=== PATIENT | female | born 1975 | race Asian ===

== ENCOUNTER 2020-11-20 14:00 | Outpatient (CLI) | payer OTHER | END 2020-11-20 23:59 | disposition home or self-care (01) | LOC: D.MAMMO 14:00 | PROVIDERS: ATTEND Family Medicine | DX: Z80.3 Family history of malignant neoplasm of breast (principal) ==

== ENCOUNTER 2021-01-06 08:00 | Outpatient (CLI) | payer OTHER ==
[2021-01-06] MEDS ORDERED: LISINOPRIL10 MG PO (10:45)
[2021-01-06] MEDS ORDERED: NORVASC10 MG PO (10:45)
[2021-01-06] MEDS ORDERED: PROVERA10 MG PO (10:45)
[2021-01-06] MEDS ORDERED: LIPITOR40 MG PO (10:45)
[2021-01-06 11:23] LABS: BASOPHILS 0.3 % (0-2); EOSINOPHILS 2.4 % (0-7); HEMATOCRIT 41.6 % (36.0-48.0); HEMOGLOBIN 13.9 g/dL (12-16); IMMATURE GRANULOCYTES 0.1 % (0-5); LYMPHOCYTE ABS# 2.46 10x3/uL (1.18-3.74); LYMPHOCYTES 32.3 % (15-50); MCH 30.2 pg (26.0-34.0); MCHC 33.4 g/dL (31.0-37.0); MCV 90.2 fL (80.0-100.0); MONOCYTES 6.2 % (2-11); NEUTROPHIL ABS# 4.47 10x3/uL (1.56-6.13); NEUTROPHILS 58.7 % (40-80); PLATELET COUNT 334 10x3/uL (130-400); RBC 4.61 10x6/uL (4.00-5.40); RDW 12.5 % (11.5-14.5); WBC 7.6 10x3/uL (4.8-10.8)
[2021-01-06 11:34] LABS: CALC OSMOLALITY 278 mosm/kg (275-300); CALCIUM 8.7 mg/dL (8.5-10.1); CARBON DIOXIDE 26.1 mmol/L (21.0-32.0); CHLORIDE - SERUM 103 mmol/L (98-107); CREATININE - SERUM 0.8 mg/dL (0.6-1.3); GLUCOSE 103 mg/dL (74-106); POTASSIUM - SERUM 3.9 mmol/L (3.5-5.1); SODIUM 140 mmol/L (136-145); UREA NITROGEN 12 mg/dL (7-18); eGFR NON AFRICAN AMERICAN 82 mL/min (90-120)
[2021-01-16 07:19] VITALS: BMI 29.5
== END 2021-01-06 08:01 | disposition home or self-care (01) ==
LOC: D.OPS 08:00 → EDSTATUS 01-09 09:45
PROVIDERS: Anesthesiology; ATTEND Obstetrics & Gynecology
DX: N92.1 Excessive and frequent menstruation with irregular cycle (principal)

== ENCOUNTER 2021-01-16 06:45 | Day surgery (SDC) | payer OTHER ==
[~2021-01-16] VITALS: Ht 165.1 cm; Wt 80.3 kg
[~2021-01-16 06:45] MED LIST: LIPITOR40 MG PO; LISINOPRIL10 MG PO; NORVASC10 MG PO; PROVERA10 MG PO
[2021-01-16 07:19] VITALS: BP 112/72; Ht 165.1 cm; Wt 80.3 kg
[2021-01-16 07:30] LABS: HCG URINE NEGATIVE (NEGATIVE)
--- NOTE | 2021-01-16 12:47 | NUR ---
OPA IN AIRWAY ON ADMIT TO [facility]
--- NOTE | 2021-01-16 14:30 | NUR ---
DISCHARGE INSTRUCTIONS REVIEWED WITH PT AND SPOUSE. COPY OF DC INSTRUCTIONS AND ORIGINAL RX FOR NORCO PROVIDED. BOTH PT AND SPOUSE VOICED UNDERSTANDING. IV DC'D WITH CATH TIP INTACT.PT THEN ASSISTED TO DANGLE AND GET DRESSED. 1450- PT C/O NAUSEA, STATES NO MEDICATION AT HOME FOR NAUSEA. CALLED DR SALTER AND NOTIFIED HIM. HE WILL CALL IN RX FOR PHENERGAN TO PT'S PHARMACY. INFORMED PT/SPOUSE OF THIS AND THEY STATED UNDERSTANDING. GAVE PT EMESIS BAG IN CASE SHE NEEDS TO VOMIT. 1500- DISCHARGED HOME VIA W/C, ACCOMPANIED BY PUJA RAMOS, TO POV WITH SPOUSE DRIVING. ALL BELONGINGS WITH PT/SPOUSE.
--- NOTE | 2021-01-28 15:52 | OP ---
PATIENT NAME: PATRICE MARSH MEDICAL RECORD: [id number] :77 LOCATION:D.OPS ADMISSION DATE: SURGEON: RANDAL VIVEROS MD DATE OF OPERATION: 01/16/2021 PREOPERATIVE DIAGNOSES: 1. Amenorrhea. 2. Endometrial thickening on ultrasound. POSTOPERATIVE DIAGNOSES: 1. Amenorrhea. 2. Endometrial thickening on ultrasound. PROCEDURES: Hysteroscopy, dilation and curettage. SURGEON: Randal Viveros MD ANESTHESIA: General endotracheal. INTRAVENOUS FLUIDS: Per anesthesia service. HYSTEROSCOPIC ESTIMATED BLOOD LOSS: Less than 100 cc of 0.9 normal saline. SPECIMENS: Included endometrial curettings. FINDINGS: 1. Grossly normal-appearing external genitalia and cervix. 2. Grossly normal proliferative appearing endometrium and endocervical canal. PROCEDURE IN DETAIL: The patient was taken to the operating room where general anesthesia was achieved without difficulty. The patient was then prepped and draped in normal sterile fashion in the dorsal lithotomy position in the [facility]. The patient was then prepped and draped in normal sterile fashion and the bladder was drained of approximately 100 cc of clear yellow urine. A Graves speculum was placed into the vagina and the cervix was grasped on its anterior lip with a single tooth tenaculum. The patient was dilated to approximately 6 mm, at which point the hysteroscope was introduced into the endometrial canal. Survey was performed and then curettage was performed in all quadrants with return of copious proliferative appearing tissue and several anterior polyps. The hysteroscope was then reintroduced into the endometrial canal and some polypoid tissue was noted anteriorly, which was then removed with a #1 curette. No evidence of perforation was found. Minimal bleeding was noted from the cervical os. The tenaculum was removed and then the speculum removed. The patient tolerated the procedure well, was transferred to postanesthesia recovery stable without incident. TRANSINT:[id number] Voice Confirmation ID: [id number] DOCUMENT ID: [id number] OPERATIVE REPORT [id number] PATRICE MARSH RANDAL VIVEROS MD at 1552 CC: [id number] DICTATION DATE: 01/25/21 170 MANAGER VOICE: 01/27/21 2301 [facility] 01/16/21 [facility] [address] [place] [address]
== END 2021-01-16 15:00 | disposition home or self-care (01) ==
LOC: D.OPS 06:45
PROVIDERS: ATTEND Obstetrics & Gynecology
DX: N91.2 Amenorrhea, unspecified (principal); R93.89 Abnormal findings on diagnostic imaging of other specified body structures; I10 Essential (primary) hypertension; E78.5 Hyperlipidemia, unspecified; Z80.3 Family history of malignant neoplasm of breast